=== PATIENT | female | born 1970 | race Caucasian/White ===

== ENCOUNTER 2016-07-03 12:23 | Emergency (ER) | payer OTHER ==
[2016-07-03 12:37] VITALS: BP 160/114
--- OUTSIDE RECORDS SUMMARY | 2016-07-03 12:47 | XMS REPORT | Continuity of Care Document ---
:1970 Author Organization [facility] ([facility]) Address [address] [place] [address] Phone [phone] Care Team Providers Name Role Phone Unavailable Primary Care Provider Unavailable Source Comments This disclosure is being made pursuant to the Care Everywhere program, applicable federal and state laws, and may not contain all informaitonavailable regarding this patient.[facility] ([facility]) Active Allergies and Adverse Reactions Not on File Current Medications Not on file Active Problems Not on file Social History Tobacco Use Types Packs/Day Years Used Date Never Assessed Plan of Care Health Maintenance Due Date Last Done Comments Hepatitis B Vaccine (1 of 3 - Primary Series) 1970 Tdap Vaccine 11/26/1982 Lipid Disorder Screening 11/26/1989 MMR Vaccine 11/26/1989 Td Vaccine 11/26/1989 Cervical Cancer Screening 11/26/2001 Mammogram 2011 Influenza Vaccine: Seasonal (#1) 12/03/2015 Results from Last 3 Months Not on file
[2016-07-03] MEDS ORDERED: IBUPROFEN 600 MG TABLET PO ONE (12:51)
[2016-07-03] MEDS ORDERED: IBUPROFEN 600 MG TABLET ONE (12:56)
--- NOTE | 2016-07-03 13:01 | ERNOTE ---
Lower Extremity HPI - Narrative Date of Service: 07/03/16 - General Lower Extremities Pain: ankle: right Time Seen by Provider: 07/03/16 12:39 Source: patient Exam Limitations: no limitations - Immun/Allergies/Home Medications Immunizations: IMMUNIZATION HX Immunizations Up to Date Yes History of Influenza Vaccine Yes Hx Pneumococcal Vaccination No Allergies/Adverse Reactions: Allergies Allergy/AdvReac Type Severity Reaction Status Date / Time No Known Allergies Allergy Verified 07/03/16 12:37 Home Medications: HOME MEDICATIONS Phenytoin Sodium Extended [Dilantin] 300 mg PO DAILY 12/03/12 [Last Taken ] - History of Present Illness Narrative: Pt. comes in with c/o R lateral ankle pain after she tripped in a hole outside of her shed at home. Pt. denies any prehospital treatment or alleviating factors but states that walking exacerbates the pain. Pt. denies any numbness or tingling. Review of Systems - Review of Systems Constitutional: Present: no symptoms reported. Absent: fever, chills, weakness , fatigue, malaise EYE: Present: no symptoms reported ENT: Present: no symptoms reported Respiratory: Present: no symptoms reported. Absent: shortness of breath, cough , wheezing Cardiology: Present: no symptoms reported. Absent: chest pain, palpitations, edema Gastrointestinal/Abdominal: Present: no symptoms reported. Absent: nausea, vomiting, diarrhea Genitourinary: Present: no symptoms reported Musculoskeletal: Present: joint pain - R ankle. Absent: back pain Skin: Present: no symptoms reported Neurological: Present: no symptoms reported. Absent: headache, dizziness/light- headedness, numbness, tingling All Other Systems: All systems neg except as marked - Patient's Past Medical History Patient History - Medical: Seizures Patient History - Cardiac/Respiratory: No pertinent hx Patient History - Cancer: No Hx of Cancer Patient History - Surgical Procedures: T & A, Other Patient History - Other: None LMP (females 10-50): last week LMP (Calendar): 08/25/15 - Social History Living Situations: home Smoking Status: Current every day smoker - Immunizations Immunizations Up to Date: Yes Hx Pneumococcal Vaccination: No History of Influenza Vaccine: Yes Physical Exam - Physical Exam General Appearance: Present: wd/wn, alert, no apparent distress Eye Exam: Normal inspection: bilateral, PERRL: bilateral, EOMI: bilateral Ears, Nose, Throat: Present: normal ENT inspection, normal pharynx Neck: Present: normal inspection, nontender. Absent: lymphadenopathy (R), lymphadenopathy (L) Respiratory: Present: no respiratory distress, normal breath sounds, no accessory muscle use, chest nontender, lungs clear Cardiovascular/Chest: Present: regular rate, rhythm, no murmur, normal peripheral pulses Gastrointestinal/Abdominal: Present: normal bowel sounds, nontender, nondistended, soft, no organomegaly Back Exam: Present: normal inspection, normal range of motion, no CVA tenderness , no vertebral tenderness Extremity Exam: Present: decreased range of motion - due to pain, bony tenderness - lateral distal , joint swelling - r ankle Neurological Exam: Present: alert, oriented, normal mood/affect, no motor/ sensory deficits Skin Exam: Present: normal color, warm/dry. Absent: pallor, skin rash ED Progress - Vital Signs Patient's Vital Signs:: I have reviewed the patient's vital signs. Vital Signs: Vital Signs 07/03/16 12:34 Temperature 37.8 C H Pulse Rate 91 Respiratory 16 Rate Blood Pressure 160/114 O2 Sat by Pulse 97 Oximetry - X-Ray X-Ray #1 X-Ray: ankle Interpretation: Reviewed by me X-ray Comments: avulsion fracture lateral malleolus - Progress/Reassessment Chief Complaint: Ankle Injury/ Pain Progress:: Improved Departure Clinical Impression: Avulsion fracture of ankle Qualifiers: Encounter type: initial encounter Fracture type: closed Laterality: right Qualified Code(s): S82.891A - Other fracture of right lower leg, initial encounter for closed fracture - Departure Disposition: [facility] Condition: Good Instructions: Ankle Fracture With Rehab-SportsMed Additional Instructions: Please follow up with ortho as scheduled for next week. no walking on the R foot Referrals: Francisco J Maya DO [Primary Care Provider] -
== END 2016-07-03 13:19 | disposition home or self-care (01) ==
LOC: ER 12:23
PROC: 2W3SX1Z Immobilization of Right Foot using Splint (ICD-10-PCS; principal; 2016-07-03)
DX: S82.891A Other fracture of right lower leg, initial encounter for closed fracture (principal); Z72.0 Tobacco use; X58.XXXA Exposure to other specified factors, initial encounter; Y92.007 Garden or yard of unspecified non-institutional (private) residence as the place of occurrence of the external cause